=== PATIENT | female | born 1955 | race Caucasian/White ===

== ENCOUNTER 2023-12-28 10:45 | Outpatient (CLI) | payer MEDICARE | END 2023-12-28 10:46 | disposition home or self-care (01) | LOC: CSHMRI 10:45 | PROVIDERS: ATTEND Psychiatry & Neurology Neurology | DX: R93.89 Abnormal findings on diagnostic imaging of other specified body structures (principal); R94.02 Abnormal brain scan | CPT/HCPCS: 70553; 93880 ==

== ENCOUNTER 2024-04-01 13:32 | Outpatient (CLI) | payer MEDICARE ==
[~2024-04-01 13:32] MED LIST: Magnevist 469MG/ML 20 ML VIAL ONE
== END 2024-04-01 13:33 | disposition home or self-care (01) ==
LOC: CSHMRI 13:32
PROVIDERS: ATTEND Psychiatry & Neurology Neurology
DX: G37.9 Demyelinating disease of central nervous system, unspecified (principal); M50.022 Cervical disc disorder at C5-C6 level with myelopathy; M48.02 Spinal stenosis, cervical region; M51.04 Intervertebral disc disorders with myelopathy, thoracic region; M48.04 Spinal stenosis, thoracic region
CPT/HCPCS: 72156; 72157; A9579